=== PATIENT | male | born 1995 | race Caucasian/White ===

== ENCOUNTER 2023-08-21 14:45 | Emergency (ER) | payer OTHER, SELFPAY ==
--- NOTE | ~2023-08-21 | XR_ITS ---
EXAMINATION: XR TOES, RIGHT CLINICAL INFORMATION: Injury to fifth toe. COMPARISON: None available. TECHNIQUE: 3 views of the right fifth toe were obtained. FINDINGS: No fractures or dislocation is appreciated. No joint effusion is identified. No bone, joint or soft tissue abnormality is noted. XR/XR toe RT min 2V IMPRESSION: Unremarkable examination.
[2023-08-21 14:47] VITALS: BP 140/86; PULSE 98; RESP 20; TEMP 36.5; O2SAT 97; BMI 26.6
--- NOTE | 2023-08-21 14:48 | ED.LOWEXIN ---
HPI - Extremity Injury (Lower) General Chief Complaint: Extremity Injury, Lower Stated Complaint: toe inj? Time Seen by Provider: 08/21/23 15:30 Source: patient Mode of arrival: ambulatory Limitations: no limitations History of Present Illness HPI Narrative: Patient is a 28-year-old male who presents emergency department for evaluation of traumatic pain to right 5th toe. Reports a stubbing injury on bed frame 4 days ago. Has redness, swelling, and pain. He states the pain has not improved over the past few days which prompted his visit today, the pain has not worsened. He is able to ambulate and bear weight without difficulty. He denies numbness or tingling. He is able to move the digit. Related Data Allergies Allergy/AdvReac Type Severity Reaction Status Date / Time No Known Allergies Allergy Unverified 06/27/20 18:37 Review of Systems Review of Systems: Yes all other systems are reviewed and are negative [facility] Past Medical History Attestation statement: The following information was validated with the patient. Source: old records reviewed Social History Social History Advance Directives: No Advance Directives Information Provided: No Physical Exam Vital Signs: Vital Signs: Last Vital Signs Temp 97.7 F 08/21/23 14:47 Pulse 98 08/21/23 14:47 Resp 20 08/21/23 14:47 BP 140/86 H 08/21/23 14:47 Pulse Ox 97 08/21/23 14:47 O2 Del Method Room Air 08/21/23 14:47 BMI result Body Mass Index 26.6 Appearance: Alert.?Oriented to person, place and time. No acute distress.?Normal affect. Eyes: Pupils equal, round and reactive to light.? ENT: Pharynx normal.?? Neck: Normal inspection.? Neck supple.?? CVS: Heart sounds normal. Normal heart rate and rhythm.? Pulses normal.?? Respiratory: No respiratory distress.? Lung sounds clear to auscultation bilaterally?? Abdomen: Soft and non-tender. Normoactive bowel sounds. Skin: Skin warm and dry.? Normal skin color.? Extremities: No lower extremity edema.? No calf ttp?left foot 5th distal phalanx of localized swelling, erythema, no warmth, full AROM, no lesions. Neuro: Moves all extremities spontaneously. Sensation intact bilaterally. Ambulates with normal steady gait. Course Course Course Narrative: This is a rapid medical exam. Deferred additional HPI, ROS, PE to primary provider. 28yo male with no known medical history here with pain/swelling to right 5th toe after stubbing injury on bed 3 days ago Will check x-rays VSS Medical Decision Making Medical Decision Making MDM Narrative: Patient is a 28-year-old male who presents emergency department for evaluation of traumatic pain to the left foot, 5th digit after stepping on a bed frame a few days back. Full AROM is intact, no erythema or warmth, examination not consistent with cellulitis, no fevers or chills, low suspicion for septic joint. XR imaging was obtained Differential Diagnosis Differential Diagnoses: The differential diagnosis associated with the presentation includes (As noted above) Independent Interpretation I performed an independent interpretation of an: Plain X-Ray (I personally interpreted x-ray and agree with radiologist impression as noted above) Radiology Impression Discussion of test interpretation with radiology: I have reviewed the radiologist's reading. Radiologist Impression: XR/XR toe RT min 2V IMPRESSION: Unremarkable examination. Prescription Management I considered prescription management with: Pain Medication (Acetaminophen/ibuprofen) Discharge Plan Discharge Clinical Impression: Contusion of fifth toe Patient Disposition: Home, Self-Care Instructions: R.I.C.E. Treatment (ED) Additional Instructions: You can take ibuprofen 200 mg, 3 tablets (600mg) every 6-8 hours as needed for pain, in addition to Tylenol 500 mg, 2 tablets (1,000mg) every 4-6 hours as needed for pain, but not to exceed 3 doses daily (3,000mg).? Referrals: Physician,Unknown J [Primary Care Provider] -
--- OUTSIDE RECORDS SUMMARY | 2023-08-21 16:08 | XMS_ITS | Continuity of Care Document ---
Author Name Unknown Organization [facility] Address [address] [place] [address]- Care Team Providers Care Asset Management Analyst Name Role Phone Joann Schneider MD Primary Care Physician Encounter [facility] [id number] Date(s): 07/22/22 - 08/21/[address] [address]- Attending Physician: Irene Yancey Admitting Physician: AdmIrene valderrama Referring Physician: Admtr ArMyra Immunizations Given and Recorded Vaccine Date Status Refusal Reason SARS-CoV-2 (COVID-19) mRNA BNT-162b2 vac 04/05/21 Recorded SARS-CoV-2 (COVID-19) mRNA BNT-162b2 vac 03/15/21 Recorded Patient Care team information Care Team Personnel Name: Joann Schneider MD Position: [facility] Resident Member Role: PCP Address: Address: [address] [place] [id number]- Care Team Related Persons Name: RUSTY WHITLEY Address: home [address] [place] [address] Name: JAVIER BRADLEY
--- OUTSIDE RECORDS SUMMARY | 2023-08-21 16:08 | XMS_ITS | Continuity of Care Document ---
Author Name Unknown Organization [facility] Address [address] [place] [address]- Care Team Providers Care Outpatient Psychiatrist Name Role Phone Not on Staff, PCP Primary Care Physician Unavail able Encounter [facility] Date(s): 06/17/22 - 07/17/[address] [address]- Patient Care team information Personnel Name: Not on Staff, PCP
== END 2023-08-21 17:15 | disposition home or self-care (01) ==
PROVIDERS: Emergency Provider Emergency Medicine Emergency Medical Services
DX: S90.121A Contusion of right lesser toe(s) without damage to nail, initial encounter (principal); W22.03XA Walked into furniture, initial encounter; Y93.89 Activity, other specified; Y92.039 Unspecified place in apartment as the place of occurrence of the external cause; Y99.9 Unspecified external cause status
CPT/HCPCS: 73660; 99283

== ENCOUNTER 2024-08-11 08:51 | Emergency (ER) | payer OTHER, SELFPAY ==
--- NOTE | ~2024-08-11 | XR_ITS ---
EXAMINATION: XR THORACIC SPINE CLINICAL INFORMATION: Back pain, no injury. COMPARISON: None available. TECHNIQUE: 2 views of the thoracic spine were obtained. FINDINGS: There is a minimal levoconvex scoliosis, apex at T7. Normal kyphosis. There is no fracture or bone destruction seen and the vertebral alignment is normal. Minimal degenerative disc changes present lower thoracic and upper lumbar region. Otherwise disc spaces appear normal. Imaged heart, lungs, and soft tissues appear normal. XR/XR thoracic spine 3V IMPRESSION: No acute bony or soft tissue abnormalities. Electronically signed by: Ron Diamond MD 08/11/2024 03:54 PM EDT
--- NOTE | ~2024-08-11 | XR_ITS ---
EXAMINATION: XR CERVICAL SPINE CLINICAL INFORMATION: Lower neck pain. No injury. COMPARISON: None available. TECHNIQUE: 3 views of the cervical spine were obtained. FINDINGS: Normal lordosis. Trace levoconvex scoliosis, possibly positional. No fractures or subluxations. No suspicious bone lesions are compression deformities. Normal alignment. Best appreciated on the AP projection, hypertrophic facet changes on the left are present at C4-5 and C5-6 with bilateral uncinate spurring associated. Disc spaces demonstrate only minimal narrowing C4-5 and C5-6. No prevertebral soft tissue abnormalities. Lung apices clear. XR/XR cervical spine 3V IMPRESSION: No acute bony or soft tissue abnormalities. Mild degenerative disc changes and left degenerative facet changes C4-5 and C5-6. Electronically signed by: Ron Diamond MD 08/11/2024 03:53 PM EDT
[2024-08-11 09:13] VITALS: BP 154/85; PULSE 69; RESP 18; TEMP 36.6; O2SAT 99; BMI 24.4
--- NOTE | 2024-08-11 11:20 | ED_ITS ---
HPI - General Adult General Chief complaint: Back Pain/Injury Stated complaint: back pain Time Seen by Provider: 08/11/24 10:08 Source: patient Mode of arrival: ambulatory Limitations: no limitations History of Present Illness ED Provider: Stephen Jalloh PA-C HPI narrative: 29 yold male with pmh of HTN presents to the ED upper back pain worse on movement for the past 2 weeks. Patient does a lot of heavy lifting at work. Patient denies any blunt trauma, fever, chills, rash, chest pain, or shortness of breath, abdominal pain, nausea, vomiting, or headache. Related Data Previous Rx's ?Medication ?Instructions ?Recorded naproxen 500 mg tablet 500 mg PO BID PRN pain 7 days #14 08/11/24 tabs prednisone 20 mg tablet 40 mg (2 x 20 mg) PO DAILY 5 days 08/11/24 #10 tabs Allergies Allergy/AdvReac Type Severity Reaction Status Date / Time No Known Allergies Allergy Unverified 08/11/24 09:14 Review of Systems Review of Systems: upper back pain Yes all other systems are reviewed and are negative [facility] Social History Social History Advance Directives: No Advance Directives Information Provided: Yes Do you have a plan to hurt others: No Plan Physical Exam ED Vital Signs: Vital Signs - 24 hr 08/11/24 09:13 08/11/24 13:11 Temperature 98 F 98.9 F Pulse Rate 69 67 Respiratory Rate 18 18 Blood Pressure 154/85 H 134/94 H Pulse Oximetry 99 97 Oxygen Delivery Method Room Air Room Air BMI result Body Mass Index 24.4 Const General: cooperative, healthy appearing, comfortable, no acute distress, well developed, alert, awake and Physically active Orientation/consciousness: patient oriented x3 HENMT Head: Yes normal to inspection, Yes No palpable skull fracture present, Yes normocephalic and Yes atraumatic Eyes General: appearance normal, both eyes and all related structures Neck Neck: Yes normal visual inspection, Yes full ROM, Yes no lymphadenopathy, Yes no meningeal signs, Yes trachea midline, Yes supple, No anterior neck swelling and Yes tender (lower cervical spine tenderness) Chest Chest palpation & inspection: normal inspection of the chest and normal palpation of entire chest wall Resp Effort & Inspection: normal respiratory effort and able to speak in complete sentences Auscultation: clear to auscultation bilaterally Cardio Jugular venous distension: no JVD Heart sounds: S1 normal heart sound present and S2 normal heart sound present GI Inspection: Yes normal to inspection Palpation (GI): Soft to palpation, not firm, nontender, no guarding and not rigid General: No CVA tenderness and Yes no CVA tenderness Back/Spine/Pelvis Back: no CVA tenderness, No CVA tenderness and back tenderness (thoracic) Skin General skin exam: no rashes or lesions noted, elasticity normal and turgor normal Neuro General: patient oriented x3, gait normal, tone normal, moves all extremities, Normal light touch and pain sensation, no meningeal signs, no focal motor deficits, CN's II-XI intact bilaterally and normal sensation to monofilament Extrem General: Yes normal to inspection, Yes full ROM and Yes capillary refill normal Psych Appearance: grossly normal, well kempt and not disheveled Course Course Course Narrative: [age] year male with upper back pain without any trauma. States pain worse on movement. Patient does heavy lifting at work. Was sent for x-ray give pain meds. Medications Administered Discontinued Medications Generic Name Dose Route Start Last Admin Trade Name Lalitoq PRN Reason Stop Dose Admin Ketorolac Tromethamine 30 mg 08/11/24 11:20 08/11/24 11:45 Ketorolac Tromethamine 30 Mg/Ml Vial IM 08/11/24 11:21 30 mg ONCE ONE Administration Medical Decision Making Medical Decision Making [facility] Narrative: 29-year-old male presents to ED for back pain worse on movement. Patient states lower neck upper back pain without any trauma. Patient denies any urinary / bowel incontinence, dysuria, hematuria, abdominal pain, chest pain, shortness of breath, IV drug use, any history of immunocompromise diseases. Patient denies any chest pain, shortness of breath, or chest pain radiating to the back. Cervical spine x-ray shows C3-C4 C5-C6 radiculopathy. Thoracic spine x-ray normal. Patient will be discharged with pain medication. Not suspecting kidney stones, epidural abscess, caudina equina, osteomylitits, pyelonephritis, or any life threatening etiology. Differential Diagnosis Differential Diagnoses: The differential diagnosis associated with the presentat ion includes ( Back pain, cervical radiculopathy thoracic radiculopathy, muscle strain, muscle spasm) Admission/Observation Consideration of admission/observation: Escalation of care including admission/observation considered Independent Interpretation I performed an independent interpretation of an: Plain X-Ray Radiology Impression Discussion of test interpretation with radiology: I have reviewed the radiologist's reading. Independent Historian Clinical information obtained from an independent historian. History obtained from or confirmed by: Other (patient) External Record Review External record reviewed: Other (prior visits) Prescription Management I considered prescription management with: Pain Medication Discharge Plan Discharge Clinical Impression: Cervical radiculopathy Patient Disposition: Home, Self-Care Instructions: Cervical Radiculopathy (ED) Additional Instructions: your x-ray of the thoracic spine came back normal. Cervical spine x-ray shows arthritis of C3, C4, C5, and C6. Recommend follow-up with the primary care provider you may need physical therapy. Return to the ED immediately for any upper extremity weakness, numbness / tingling, severe neck pain, fever, chills, light bothering her eyes, nausea, vomiting, chest pain, shortness of breath, or any other concerning symptoms. Prescriptions: New naproxen 500 mg tablet 500 mg PO BID PRN (Reason: pain) 7 Days Qty: 14 0RF prednisone 20 mg tablet 40 mg PO DAILY 5 Days Qty: 10 0RF Stand Alone Forms: Work/School Release Interventions: ED Discharge Assessment Last Done: 08/11/24 14:33 Discharge Date/Time: 08/11/24 14:35 Print Language: Icelandic
[2024-08-11] MEDS: Ketorolac Tromethamine 30 MG/ML VIAL IM (11:45)
[2024-08-11 13:11] VITALS: BP 134/94; PULSE 67; RESP 18; TEMP 37.2; O2SAT 97
[2024-08-11 14:33] VITALS: BP 134/94; PULSE 67; RESP 18; TEMP 37.2; O2SAT 97
== END 2024-08-11 14:35 | disposition home or self-care (01) ==
PROVIDERS: Emergency Provider Emergency Medicine Emergency Medical Services
DX: M54.12 Radiculopathy, cervical region (principal); M54.6 Pain in thoracic spine
CPT/HCPCS: 72040; 72072; 96372; 99284; J1885

== ENCOUNTER → 2024-08-11 11:20 | Outpatient (BNV) | payer OTHER, SELFPAY | PROVIDERS: Emergency Provider Emergency Medicine Emergency Medical Services; Visit Provider Radiology Diagnostic Radiology | DX: M54.50 Low back pain, unspecified (principal) | CPT/HCPCS: 72040; 72072 ==